=== PATIENT | male | born 1965 | race Caucasian/White ===

== ENCOUNTER 2020-02-01 08:09 | Day surgery (SDC) | payer OTHER ==
[~2020-02-01] VITALS: Ht 167.6 cm; Wt 98.9 kg
[2020-02-01] MEDS ORDERED: methylPREDNISolone ACETATE 40 MG/ML IM ONE (08:10)
[2020-02-01] MEDS ORDERED: LIDOCAINE 1% 10 MG/ML, 20 ML MDV INJ ONE (08:10)
[2020-02-01] MEDS ORDERED: IOPAMIDOL 50 ML VIAL IV ONE (08:10)
[2020-02-01] MEDS ORDERED: BUPIVACAINE /PF 0.25% 30 ML VIAL INJ ONE (08:10)
[2020-02-01] MEDS ORDERED: DIPHENHYDRAMINE INJ 50 MG/ML VIAL ONE (09:01)
[2020-02-01] MEDS: MIDAZOLAM HCL 5 MG/5 ML VIAL ONE ×2 (09:27→09:32)
[2020-02-01 13:07] VITALS: BP_SYST 159
== END 2020-02-01 10:15 | disposition home or self-care (01) ==
LOC: SDS 08:09 → SMU 08:10 → SDS 10:15
PROVIDERS: ATTEND Internal Medicine
DX: M53.3 Sacrococcygeal disorders, not elsewhere classified (principal); M47.816 Spondylosis without myelopathy or radiculopathy, lumbar region; Z20.828 Contact with and (suspected) exposure to other viral communicable diseases; Z79.01 Long term (current) use of anticoagulants; Z79.899 Other long term (current) drug therapy
CPT/HCPCS: 27096; 82962; J1030; J1200; J2001; J2250; J3490; J7120; Q9967; U0003; 76000